=== PATIENT | male | born 1960 | race Caucasian/White ===

== ENCOUNTER 2019-05-11 05:59 | Observation (INO) | payer OTHER, SELFPAY ==
[2019-05-11] VITALS (9 sets, daily range): BP systolic 115–139; BP diastolic 68–95; PULSE 54–88; RESP 9–19; TEMP 36.3–36.6; O2SAT 93–99; BMI 43.5
--- NOTE | 2019-05-11 06:17 | ED_ITS ---
HPI - Skin/Abscess/Foreign Bdy General Chief complaint: Skin/Abscess/Foreign Body Stated complaint: 'foreign object in me' Time Seen by Provider: 05/11/19 06:00 Source: patient Mode of arrival: Ambulatory Limitations: no limitations History of Present Illness HPI narrative: 58-year-old male nonsmoker with history of hypertension and hyperlipidemia presents with a chief complaint of a rectal foreign body. About 12 hours ago he inserted a plastic shampoo bottle in his rectum and has been unable to get it out. He denies any abdominal pain but states that it is hard for him to sit down because he has fullness. He has been passing gas but even despite pushing has been unable to get it out. He has never done this before. He denies any nausea or vomiting. He last ate about 5 or 530 this morning. MD complaint: other Onset (ago): hour(s) Tetanus up to date: yes Severity: moderate Quality: aching Pain Consistency: constant Relieving factors: none Exacerbating factors: none Context: none Associated symptoms: denies other symptoms Treatments prior to arrival: none Related Data Allergies Allergy/AdvReac Type Severity Reaction Status Date / Time acetaminophen [From Roxicet] AdvReac Verified 05/11/19 06:26 lisinopril AdvReac Verified 05/11/19 06:26 oxycodone [From Roxicet] AdvReac Verified 05/11/19 06:26 simvastatin AdvReac Verified 05/11/19 06:26 Review of Systems Constitutional Constitutional: Denies chills, Denies fatigue, Denies fever(s), Denies frequent falls, Denies lethargy and Denies weakness Eyes Eyes: Denies change in vision, Denies eye discharge, Denies irritation and Denies loss of vision ENT Ears, Nose, Mouth, and Throat: Denies change in voice, Denies dizziness, Denies neck pain, Denies sore throat and Denies throat swelling Cardiovascular Cardiovascular: Denies chest pain, Denies irregular heart rhythm, Denies lightheadedness, Denies palpitations, Denies dyspnea, Denies dyspnea on exertion and Denies orthopnea Respiratory Respiratory: Denies cough, Denies dyspnea, Denies dyspnea on exertion and Denies wheezing Gastrointestinal Gastrointestinal: Denies abdominal pain, Denies change in bowel habits, Denies diarrhea, Denies nausea and Denies vomiting Comments: Rectal pain Genitourinary Genitourinary: Denies hematuria, Denies flank pain, Denies urinary incontinence and Denies urinary urgency Musculoskeletal Musculoskeletal: Denies back pain, Denies muscle weakness, Denies neck pain, Denies numbness and Denies tingling Integumentary/Breasts Skin/Breast: Denies pruritus, Denies erythema, Denies rash and Denies wounds Neurologic Neurologic: Denies behavioral changes, Denies confusion, Denies dizziness, Denies frequent falls, Denies loss of vision, Denies numbness, Denies tingling and Denies weakness Psychiatric Psychiatric: Denies anxiety, Denies behavioral changes, Denies confusion, Denies depression, Denies homicidal ideation and Denies suicidal ideation Endocrine Endocrine: Denies fatigue, Denies flushing and Denies palpitations Hematologic/Lymphatic Hematologic/Lymphatic: Denies easy bruising Allergic/Immunologic Allergic/Immunologic: Denies urticaria, Denies throat swelling and Denies wh eezing Patient History Social History Smoking Status: Never smoker Smoking Status: Never smoker alcohol intake frequency: 0-2 drinks per day Substance Use Type: does not use Exam Narrative Exam Narrative: GENERAL: [58] year old patient appears stated age. Well- nourished, well-developed patient, in mild distress. Anxious HEAD: Atraumatic. Normocephalic. EYES: Pupils equal round and reactive. Extraocular motions intact. No scleral icterus. No injection or drainage. ENT: Nose without bleeding, purulent drainage. Throat without erythema, tonsillar hypertrophy or exudate. Airway patent. NECK: Trachea midline. Non tender CARDIOVASCULAR: Regular rate and rhythm without murmurs, gallops, or rubs. RESPIRATORY: Clear to auscultation. Breath sounds equal bilaterally. No wheezes, rales, or rhonchi. GASTROINTESTINAL: Abdomen soft, non-tender, nondistended. RECTAL: No FB noted EXTREMITIES: No edema or joint tenderness. BACK: Nontender without deformity or crepitance. No flank tenderness. NEURO: AOx3. SKIN: No rash or erythema of visible areas Initial Vital Signs Initial Vital Signs: Vital Signs Temperature 98 F 05/11/19 06:12 Pulse Rate 88 05/11/19 06:12 Respiratory Rate 19 05/11/19 06:12 Blood Pressure 139/68 05/11/19 06:12 Pulse Oximetry 99 05/11/19 06:12 Course Course Course Narrative: Dr. Martin to see patient in ED will send to floor and take to OR later today Orders Ordered: ED Orders 05/11/19 06:28 XR abdomen min 2V Stat 05/11/19 06:55 Basic Metabolic Panel Stat Complete Blood Count AUTO DIFF Stat Prothrombin Time INR Stat Type and Screen Stat Vital Signs Vital signs: Vital Signs - 8 hr 05/11/19 06:12 Temperature 98 F Pulse Rate 88 Respiratory Rate 19 Blood Pressure 139/68 Pulse Oximetry 99 MDM - Skin/Abscess/Foreign Bdy Lab Data Result diagrams: 05/11/19 06:55 05/11/19 06:55 Labs: Lab Results 05/11/19 05/11/19 05/11/19 Range/Units 06:55 06:55 06:55 WBC 9.5 (4.5-11.0) X10^3/uL RBC 4.71 (4.5-5.9) X10^6/uL Hgb 15.1 (13.5-17.5) g/dL Hct 44.4 (41-53) % MCV 94.3 (80-100) fL MCH 32.0 (26-34) PG MCHC 34.0 (30-36) % RDW 13.7 (11.6-14.8) % Plt Count 113 L (150-400) X10^3/uL Neut % (Auto) 81.3 H (50-75) % Lymph % (Auto) 10.6 L (25-40) % [place] % (Auto) 6.2 (3-14) % Eos % (Auto) 1.7 L (2-4) % Baso % (Auto) 0.2 (0-2) % Neut # (Auto) 7700 H (0354-2999) /uL Lymph # (Auto) 1000 L (0627-8397) /uL [place] # (Auto) 600 (0-900) /uL Eos # (Auto) 200 (0-450) /uL Baso # (Auto) 0 (0-100) /uL PT 12.7 (10.1-12.7) SECONDS INR 1.1 (0.9-1.3) Sodium 140 (137-145) mmol/L Potassium 4.3 (3.4-5.1) mmol/L Chloride 107 (98-107) mmol/L Carbon Dioxide 24 (22-32) mmol/L BUN 20 (9-20) mg/dL Creatinine 0.80 (0.66-1.25) mg/dL Estimated GFR > 60.0 (>60) mL/min BUN/Creatinine Ratio 25.0 H (6-22) Glucose 251 H (70-100) mg/dL Calcium 9.2 (8.4-10.2) mg/dL Imaging Data Abdominal x-ray: My Impression: rectal FB with internal airfluid level Discharge Plan Departure Patient Disposition: Admitted as Observation Clinical Impression: Foreign body anus/rectum Qualifiers: Encounter type: initial encounter Qualified Code(s): T18.5XXA - Foreign body in anus and rectum, initial encounter Admit Date/Time: 05/11/19 07:31 Admit Provider: Graciela Martin
--- NOTE | 2019-05-11 06:24 | PC.NURSE ---
patient reports he placed a Vaseline lubricated shampoo bottle in his anus. Patient motioned with his hand showing approximate size of shampoo bottle at 12 inches. He reports he was able to feel it initially with his fingers and drove self into ED. He states he could feel the pressure on the shampoo bottle close to his anus when sitting in the car. Provider attempted a digital extraction however provider not able to feel the shampoo bottle.
--- NOTE | 2019-05-11 06:28 | DI.RAD.S_ITS ---
PROCEDURE: XR ABDOMEN MIN 2V INDICATIONS: foreign body TECHNIQUE: 2 views of the abdomen were acquired. COMPARISON: None. FINDINGS: Surgical changes and devices: None. Bowel: No pneumoperitoneum. The bowel gas pattern is normal. Probable surgical suture is projected over the epigastrium. No unexpected radiopaque foreign body visualized. Soft tissues: No masses; visualized solid organ contours appear normal in size. No suspicious abdominal calcifications. Bones: No suspicious bony abnormalities. IMPRESSION: No definite unexpected radiopaque foreign body is visualized in Dictated by: Samantha Carlisle M.D. on 05/11/2019 at 7:57 Approved by: Samantha Carlisle M.D. on 05/11/2019 at 7:59
[2019-05-11 07:06] LABS: Add Manual Diff / Slide Review NO; Basophils Absolute Auto 0 /uL (0-100); Basophils Percent Auto 0.2 % (0-2); Eosinophils Absolute Auto 200 /uL (0-450); Eosinophils Percent Auto 1.7 % (2-4); Hematocrit 44.4 % (41-53); Hemoglobin 15.1 g/dL (13.5-17.5); Lymphocytes Absolute Auto 1000 /uL (1100-4500); Lymphocytes Percent Auto 10.6 % (25-40); Mean Corpuscular Volume 94.3 fL (80-100); Monocytes Absolute Auto 600 /uL (0-900); Monocytes Percent Auto 6.2 % (3-14); Neutrophils Absolute Auto 7700 /uL (1500-7000); Neutrophils Percent Auto 81.3 % (50-75); Platelet Count 113 X10^3/uL (150-400); Red Blood Cell Count 4.71 X10^6/uL (4.5-5.9); Red Cell Distribution Width 13.7 % (11.6-14.8); White Blood Cell Count 9.5 X10^3/uL (4.5-11.0)
[2019-05-11 07:16] LABS: INR 1.1 (0.9-1.3); Prothrombin Time 12.7 SECONDS (10.1-12.7)
[2019-05-11 07:19] LABS: Blood Urea Nitrogen 20 mg/dL (9-20); Calcium 9.2 mg/dL (8.4-10.2); Carbon Dioxide 24 mmol/L (22-32); Chloride 107 mmol/L (98-107); Estimated Glomerular Filt Rate > 60.0 mL/min (>60); Glucose 251 mg/dL (70-100); HEMOLYSIS 21 (0-50); Potassium 4.3 mmol/L (3.4-5.1); Sodium 140 mmol/L (137-145)
--- NOTE | 2019-05-11 07:57 | PM.HP.1 ---
History of Present Illness History of Present Illness Date Patient Seen: 05/11/19 Time Patient Seen: 07:57 Chief complaint: 'foreign object in me' Narrative: This is a 58-year-old man with history of morbid obesity, hypertension, and hyperlipidemia who presented to the ER this morning complaining of a retained rectal foreign body. He says about 12 hours ago he placed a plastics shampoo bottle in his rectum with the closed cap going and 1st. He has not been able to get it out. He has passed some liquid stool and gas around it. He denies abdominal pain, nausea, vomiting but he does report a sense of rectal fullness and discomfort when sitting. He has a history of sleeve gastrectomy in surgery. Denies any other abdominal surgery. He said he had a colonoscopy about 2 years ago which was normal, other than 2 small polyps which were removed. He denies any melena, hematochezia, unexplained abdominal pain, or unexplained weight loss. Says he has never had a heart attack or stroke, but has had over 100 TIAs. He says he takes nitroglycerin for his TIAs. He says he has had sleeve gastrectomy in April of 2018, after which he has lost 100 lb. He says he has had sleep apnea surgery, but still uses a CPAP machine at home. Past medical history: Morbid obesity Hypertension hyperlipidemia obstructive sleep apnea DM2 TIA (patient said he has had over 100 TIAs) past surgical history: sleep apnea surgery sleeve gastrectomy in April of 2018, over 100 lb weight loss post surgery social: Smoking Status: Never smoker alcohol intake frequency: 0-2 drinks per day Substance Use Type: does not use Family history: No family history of colon or rectal disorders reported Allergies: Tylenol, lisinopril, oxycodone, simvastatin Home medications: Tylenol, aspirin, a total lack, omeprazole, nasal spray, albuterol, metformin b.i.d., metoprolol unknown dose b.i.d., atorvastatin, nitroglycerin sublingual as needed (last use 5 days ago) ROS: Constitutional: Denies chills, Denies fatigue, Denies fever(s), Denies frequent falls, Denies lethargy and Denies weakness Eyes: Denies change in vision, Denies eye discharge, Denies irritation and Denies loss of vision Ears, Nose, Mouth, and Throat: Denies change in voice, Denies dizziness, Denies neck pain, Denies sore throat and Denies throat swelling Cardiovascular: Denies chest pain, Denies irregular heart rhythm, Denies lightheadedness, Denies palpitations, Denies dyspnea, Denies dyspnea on exertion and Denies orthopnea Respiratory: Denies cough, Denies dyspnea, Denies dyspnea on exertion and Denies wheezing Gastrointestinal: Denies abdominal pain, Denies change in bowel habits, Denies diarrhea, Denies nausea and Denies vomiting Comments: Rectal pain Genitourinary: Denies hematuria, Denies flank pain, Denies urinary incontinence and Denies urinary urgency Musculoskeletal: Denies back pain, Denies muscle weakness, Denies neck pain, Denies numbness and Denies tingling Skin/Breast: Denies pruritus, Denies erythema, Denies rash and Denies wounds Neurologic: Denies behavioral changes, Denies confusion, Denies dizziness, Denies frequent falls, Denies loss of vision, Denies numbness, Denies tingling and Denies weakness Psychiatric: Denies anxiety, Denies behavioral changes, Denies confusion, Denies depression, Denies homicidal ideation and Denies suicidal ideation Endocrine: Denies fatigue, Denies flushing and Denies palpitations Hematologic/Lymphatic: Denies easy bruising Allergic/Immunologic: Denies urticaria, Denies throat swelling and Denies wheezing PE: GENERAL: Alert, comfortable. Morbidly obese. Appears older than stated age. Answers questions promptly and appropriately. Vital signs noted. HENT: Normocephalic, atraumatic. Hearing intact. Oral mucosa is pink and moist. EYES: Conjunctiva pink, sclera white, no periorbital swelling. CARDIOVASCULAR: Regular rate. No pedal edema. RESPIRATORY: Non-tachypneic, breathing comfortably on room air. GASTROINTESTINAL: Abdomen soft and non-distended; large in rounded, nontender on deep palpation, no masses felt the patient reports rectal discomfort when I press down on his abdomen Perianal: No external hemorrhoids, some excoriation of the perianal skin is present TRISTON: Moderate tenderness on exam, the foreign body is felt about 15 cm from the anoderm, and is caught on the sacrum, consistent with the bottom end of a shampoo bottle GENITALURINARY: No flank tenderness. MUSCULOSKELETAL: Equal tone and mass bilaterally. SKIN: Warm, dry, soft, appropriate color for ethnicity. No other lesions, rashes, or wounds. NEURO: Alert and Oriented X 3. No gross sensory deficits, or cognitive issues. PSYCH: Appropriate affect and mood. Patient History Family & Social History Safety & Behavioral: Feels Safe in Current Yes Environment Tobacco & Substance use: Smoking Status Never smoker alcohol intake frequency 0-2 drinks per day Substance Use Type does not use Meds Home Medications and Allergies Home Medications Medication Instructions Recorded Confirmed Type aspirin [Aspir-81] 81 mg PO DAILY 05/11/19 05/11/19 History atorvastatin 05/11/19 History metformin 1,000 mg PO BID 05/11/19 05/11/19 History metoprolol tartrate 05/11/19 History nitroglycerin 0.4 mg SUBLINGUAL Q5M 05/11/19 05/11/19 History Allergies Allergy/AdvReac Type Severity Reaction Status Date / Time acetaminophen [From Roxicet] AdvReac Verified 05/11/19 06:26 lisinopril AdvReac Verified 05/11/19 06:26 oxycodone [From Roxicet] AdvReac Verified 05/11/19 06:26 simvastatin AdvReac Verified 05/11/19 06:26 Exam Vital Signs (past 8 hours): - 05/11/19 06:12 Temperature 98 F Pulse Rate 88 Respiratory Rate 19 Blood Pressure 139/68 Pulse Oximetry 99 Objective Imaging Abdominal x-ray: My impression: There is an air-fluid level in the rectum consistent with plastic bottle have filled with shampoo, as described by the patient Labs Result Diagrams: 05/11/19 06:55 05/11/19 06:55 Labs: Laboratory Results - last 24 hr 05/11/19 05/11/19 05/11/19 06:55 06:55 06:55 WBC 9.5 RBC 4.71 Hgb 15.1 Hct 44.4 MCV 94.3 MCH 32.0 MCHC 34.0 RDW 13.7 Plt Count 113 L Neut % (Auto) 81.3 H Lymph % (Auto) 10.6 L [place] % (Auto) 6.2 Eos % (Auto) 1.7 L Baso % (Auto) 0.2 Neut # (Auto) 7700 H Lymph # (Auto) 1000 L [place] # (Auto) 600 Eos # (Auto) 200 Baso # (Auto) 0 PT INR Sodium 140 Potassium 4.3 Chloride 107 Carbon Dioxide 24 BUN 20 Creatinine 0.80 Estimated GFR > 60.0 BUN/Creatinine Ratio 25.0 H Glucose 251 H Calcium 9.2 Blood Type A Positive Antibody Screen Negative 05/11/19 06:55 WBC RBC Hgb Hct MCV MCH MCHC RDW Plt Count Neut % (Auto) Lymph % (Auto) [place] % (Auto) Eos % (Auto) Baso % (Auto) Neut # (Auto) Lymph # (Auto) [place] # (Auto) Eos # (Auto) Baso # (Auto) PT 12.7 INR 1.1 Sodium Potassium Chloride Carbon Dioxide BUN Creatinine Estimated GFR BUN/Creatinine Ratio Glucose Calcium Blood Type Antibody Screen Assessment & Plan Assessment and plan (1) Morbid obesity with BMI of 40.0-44.9, adult: Current visit: Yes Status: Acute (2) History of sleeve gastrectomy: Current visit: Yes Status: Acute (3) Hypertension: Current visit: Yes Status: Acute (4) Hyperlipidemia: Current visit: Yes Status: Acute (5) Foreign body anus/rectum: Qualifiers: Encounter type: initial encounter Qualified Code(s): T18.5XXA - Foreign body in anus and rectum, initial encounter Current visit: Yes Status: Acute (6) Personal history of colonic polyps: Current visit: Yes Status: Acute Assessment & Plan narrative: I had a long discussion with the patient regarding my exam findings and the potential outcomes of any intervention for this situation. Of note able to retrieve it on awake exam. I recommend that we do an exam under anesthesia with him in lithotomy position, during which I will hopefully be able to extract this foreign body. I explained to him that there is a high risk of perforation of the colon, which may necessitate a laparotomy, and may even result in a colostomy. The patient desires to proceed with this plan. He last ate solid food around 5:00 a.m. or 530 this morning, which means we cannot go to the OR until around 11:00 a.m. 45 minutes were spent face to face with the patient. More than 50% of the time was spent in counseling and co-ordination of care regarding discussion of medical history, HPI, discussion of risks and benefits of extraction under anesthesia, and possible laparotomy. Plan: NPO IV fluid Plan for anorectal exam under anesthesia, extraction of foreign body, possible sigmoidoscopy, possible laparotomy Time Spent With Patient Time with patient: Greater than 35 minutes Quality VTE Deep Vein Thrombosis/Pulmonary Embolism Present on Admission: No
--- NOTE | 2019-05-11 10:34 | PC.NURSE ---
Day shift: Pt off unit for procedure at 1035 approx.
[2019-05-11] MEDS: LACTATED RINGERS 1,000 ML 120 ML IV (10:45)
--- NOTE | 2019-05-11 11:28 | PM.OP.1 ---
Operative Date/Time/Diagnoses Date of procedure: 05/11/19 Time of procedure: 11:28 Pre-op diagnosis: Rectal foreign body Post-op diagnosis: same Procedure & Clinicians Procedure: Anorectal exam under anesthesia, extraction of foreign body from rectum Same procedure as scheduled: Yes Indications: This is a 58-year-old man who had a large improved bottle placed in his rectum last evening, and has not been able to remove it because of the shape of object, it was very high up in his colon, and he was not able to tolerate the exam. He came into the ER, where I was not able to remove it with him awake. So the decision was made to bring him to the operating room and put him under anesthesia in order to extract the foreign body. Surgeon: Graciela Martin Click Yes if Unassisted: Yes Anesthesia Type: General Operative Notes Findings: Large closed shampoo bottle in the rectosigmoid colon Specimen(s): none sent Estimated Blood Loss (mL): 5 Blood products transfused: none Procedure in detail: Patient was brought to the operating room he was placed supine on the operating table. Sequential compression devices were positioned on the patient and turned on. General anesthesia was induced the patient was intubated by Dr. Mcfadden. The patient was placed in lithotomy position. Surgical time-out was conducted. Rectal exam was then performed, and the foreign body was palpated at the very tip of my fingers. Using my other hand to push down on his abdomen I was able to gain a little bit of traction on the bottle, but it continued to slip. I attempted to place an Glenn retractor up into the rectum so that I could use an instrument to grasp the bottle, but I was not able to keep the retractor in place. I also attempted using a speculum to gain visual access to the object so that I could place a piercing forceps onto the object and retrieve it. Again I was then able to gain visual access to the object. Finally I placed my hand back into the rectum and advanced my entire hand up into the patient's rectum in order to fully grasp the object and extracted. Was then able to draw it smoothly out of the anal canal and out of the patient. There was a moderate amount of venous bleeding from some fissures caused by dilation of the rectum. Pressure was held on the bleeding areas of the anal verge and distal anal canal using a lap pad. I then used 2 large Gel foams rolled with Nupercaine and placed them into the anal canal for hemostasis. The patient tolerated the procedure well. Needle, sponge, and instrument counts were correct x2 at the end of the procedure. Patient was awakened from anesthesia and transferred to the post Anesthesia recovery unit in stable condition. Complications: none Post-operative Condition: stable Disposition: PACU Plan for aftercare: Patient will be discharged home once he has awakened from anesthesia and has someone to accompany him to take him home.
--- NOTE | 2019-05-11 11:30 | SUR.OPER ---
Lithotomy on padded OR bed, head on pillow, arms secured on padded arm boards at <90 degrees abduction. Legs secured in padded yellow fins stirrups.
[2019-05-11] MEDS: DIBUCAINE 1% OINT 28 GM 1 APPLIC TOP (11:38)
--- NOTE | 2019-05-11 12:19 | SUR.PHASEI ---
1205: Pt transferred to room 212 in stable conditions. Orders written for pt to DC from AC. Monitoring started by SARAHI Vang.
--- NOTE | 2019-05-11 14:03 | PC.NURSE ---
Pt discharged via wheelchair, escorted by [employer] son is driving him in private vehicle
== END 2019-05-11 14:06 | disposition home or self-care (01) ==
LOC: ED 07:19 → AC 07:33
PROVIDERS: Admitting Provider Surgery; Emergency Provider Emergency Medicine; PCP Nurse Practitioner Acute Care; Referring Provider Emergency Medicine; Visit Provider Surgery
PROC: (CPT 45990; principal; 2019-05-11 10:00)
DX: T18.5XXA Foreign body in anus and rectum, initial encounter (principal); E66.01 Morbid (severe) obesity due to excess calories; Z68.41 Body mass index [BMI] 40.0-44.9, adult; Z90.3 Acquired absence of stomach [part of]; I10 Essential (primary) hypertension; E78.5 Hyperlipidemia, unspecified; K21.9 Gastro-esophageal reflux disease without esophagitis; E11.9 Type 2 diabetes mellitus without complications; G47.33 Obstructive sleep apnea (adult) (pediatric); Z79.84 Long term (current) use of oral hypoglycemic drugs
CPT/HCPCS: 45915; 36415; 74019; 80048; 82962; 85025; 85610; 86850; 86900; 86901; 96360; 99219; 99284; G0378; J0330; J2405; J2704

== ENCOUNTER 2019-09-12 12:34 | Emergency (ER) | payer OTHER, SELFPAY ==
[2019-05-11 08:59] VITALS: BMI 43.5
[2019-09-12 12:56] VITALS: BMI 42.2
--- NOTE | 2019-09-12 12:56 | DI.CT.S_ITS ---
PROCEDURE: CT CERVICAL SPINE WO CON INDICATIONS: Neck tenderness post fall h/o C5 injury TECHNIQUE: Noncontrast 3 mm thick sections acquired from the skull base to the T4 level. Sagittal and coronal reformats were then constructed. For radiation dose reduction, the following was used: automated exposure control, adjustment of mA and/or kV according to patient size. COMPARISON: None. FINDINGS: Image quality: Excellent. Bones: No acute fractures or dislocations. No acute compression fractures of the vertebral bodies. Craniocervical junction is intact. C1-C2 relationship is preserved. Visualized superior ribs are intact. Age-indeterminate, but likely chronic inferior endplate changes at C5. There are moderate multilevel degenerative changes throughout the imaged spine. Straightening of cervical lordosis which may be due to patient positioning and/or concurrent muscle spasms. Soft tissues: Prevertebral soft tissues are normal in thickness. No paravertebral hematomas. No apical pneumothoraces. IMPRESSION: 1. Cervical spine without acute fracture or dislocation. Age-indeterminate but likely chronic inferior endplate changes at C5 which correlates with reported history of remote C5 injury. 2. Moderate multilevel cervical spondylosis. 3. Mild straightening of normal cervical lordosis likely related to positioning and/or concurrent muscle spasms. Dictated by: Jeremiah Gonzalez M.D. on 09/12/2019 at 13:28 Approved by: Jeremiah Gonzalez M.D. on 09/12/2019 at 13:38
--- NOTE | 2019-09-12 12:56 | DI.CT.S_ITS ---
PROCEDURE: CT HEAD/BRAIN WO CON INDICATIONS: FAll, head trauma TECHNIQUE: Noncontrast 4.5 mm thick angled axial sections acquired from the foramen magnum to the vertex, with coronal and sagittal reformats. For radiation dose reduction, the following was used: automated exposure control, adjustment of mA and/or kV according to patient size. COMPARISON: None. FINDINGS: Image quality: Excellent. CSF spaces: Basal cisterns are patent. No extra-axial fluid collections. The ventricles are symmetric in size and shape. Brain: No intracranial bleeds or masses. There is cerebral volume loss for age, with resultant ventricular and sulcal prominence. There are periventricular and deep white matter chronic small vessel ischemic changes. There is intracranial internal carotid artery atherosclerosis. Skull and face: Calvarium and visualized facial bones appear intact, without suspicious lesions. Small left frontal scalp contusion. Sinuses: Visualized sinuses and mastoids are clear. IMPRESSION: 1. CT head without acute intracranial abnormalities or acute calvarial fractures. 2. Age-related senescent changes and sequela of chronic small vessel ischemic disease. 3. Partially imaged small left frontal scalp contusion. Dictated by: Jeremiah Gonzalez M.D. on 09/12/2019 at 13:27 Approved by: Jeremiah Gonzalez M.D. on 09/12/2019 at 13:28
--- NOTE | 2019-09-12 12:56 | DI.CT.S_ITS ---
PROCEDURE: CT FACIAL BONES WO CON INDICATIONS: Fall, facial trauma TECHNIQUE: Noncontrast 2.5 mm thick axial images acquired from the mandible through the frontal sinuses, with coronal and sagittal reformatting. For radiation dose reduction, the following was used: automated exposure control, adjustment of mA and/or kV according to patient size. COMPARISON: None. FINDINGS: Image quality: Excellent. Bones and teeth: Orbital león are intact. Sinus león show no fracture or deformity. Small nondisplaced acute left nasal bone fracture. Osseous nasal septum appears intact. Visualized portions of the mandible demonstrate no fractures or subluxation. Zygomatic arches are intact. Pterygoid plates are intact. Visualized portions of the skull base and auditory canals are intact. Sinuses: There is mucosal thickening of the bilateral maxillary sinuses. Remainder of the paranasal sinuses appear clear. Mastoid air cells are well-aerated. Soft tissues: Minimal left frontal scalp contusion overlying the nasal bridge. No masses or fluid collections. No enlarged lymph nodes. No soft tissue lacerations or debris. Vascular: Visualized vascular structures appear normal in the absence of contrast. Bony vascular foramina and canals are intact. IMPRESSION: 1. Nondisplaced left nasal bone fracture. 2. Minimal left frontal scalp contusion without underlying calvarial fracture. 3. Bilateral maxillary sinus disease. Dictated by: Jeremiah Gonzalez M.D. on 09/12/2019 at 13:41 Approved by: Jeremiah Gonzalez M.D. on 09/12/2019 at 13:51
--- NOTE | 2019-09-12 12:56 | DI.RAD.S_ITS ---
PROCEDURE: XR KNEE LT 3V INDICATIONS: L knee pain and swelling post trauma TECHNIQUE: 3 views of the knee were acquired. COMPARISON: None. FINDINGS: Bones: No acute fractures or dislocations. Distal quadriceps enthesophyte at the superior pole of the patella. No suspicious bony lesions. Soft tissues: Mild anterior left knee soft tissue swelling. Very small joint effusion. No suspicious soft tissue calcifications. IMPRESSION: Mild anterior left knee soft tissue swelling and small joint effusion without underlying fracture or dislocation. If there is persistent clinical concern for occult fracture given adequate mechanism of injury, consider repeat imaging in 10-14 days. Dictated by: Jeremiah Gonzalez M.D. on 09/12/2019 at 13:52 Approved by: Jeremiah Gonzalez M.D. on 09/12/2019 at 13:54
--- NOTE | 2019-09-12 13:01 | ED.FALL ---
HPI - Fall <EBER Mcwilliams - Last Filed: 09/12/19 20:06> General Chief Complaint: Fall Stated Complaint: Trauma Injury To Face Time Seen by Provider: 09/12/19 12:37 History of Present Illness HPI Narrative: 58yo male history of hypertension, diabetes, and hyperlipidemia, presents to the emergency department after a fall last night. He states he fell down approximately 9 stairs and hit his face and his left knee. He was able to stand up afterwards but is complaining of neck pain. He has a history of C5 fracture and is worried that this is worse. Patient denies any loss of consciousness, fevers, chills, nausea, vomiting, diarrhea, or any other concerns. He does not take any blood thinners. Related Data Home Medications Medication Instructions Recorded Confirmed acetaminophen 1,000 mg PO BID 05/11/19 05/11/19 aspirin [Aspir-81] 81 mg PO DAILY 05/11/19 05/11/19 atorvastatin 05/11/19 etodolac 200 mg PO BID 05/11/19 05/11/19 metformin 1,000 mg PO BID 05/11/19 05/11/19 metoprolol tartrate 05/11/19 nitroglycerin 0.4 mg SUBLINGUAL Q5M 05/11/19 05/11/19 Allergies Allergy/AdvReac Type Severity Reaction Status Date / Time acetaminophen [From Roxicet] AdvReac Verified 05/11/19 06:26 lisinopril AdvReac Verified 05/11/19 06:26 oxycodone [From Roxicet] AdvReac Verified 05/11/19 06:26 simvastatin AdvReac Verified 05/11/19 06:26 Review of Systems <EBER Mcwilliams - Last Filed: 09/12/19 20:06> Review of Systems Narrative: REVIEW OF SYSTEMS: GENERAL: Denies fever or chills. HENT: Reports head and facial trauma, reports nasal pain see HPI. EYES: No vision changes. NECK: Reports neck pain, see HPI. CARDIOVASCULAR: No chest pain or syncope. RESPIRATORY: No shortness of breath or cough. GASTROINTESTINAL: No nausea, vomiting, diarrhea, or constipation. MUSCULOSKELETAL: No pain, weakness, or deformities. INTEGUMENTARY: No rash, lesions, or pruritus. NEURO: No numbness, tingling, memory loss, or confusion. PSYCH: No behavior or mood changes. Patient History <EBER Mcwilliams - Last Filed: 09/12/19 20:06> Medical History Hypertension (Acute) Social History household members: spouse Smoking Status: Never smoker alcohol intake: former Smoking Status: Never smoker alcohol intake frequency: holidays/special occasions only Substance Use Type: does not use Exam <EBER Mcwilliams - Last Filed: 09/12/19 20:06> Initial Vital Signs Initial Vital Signs: Vital Signs Temperature 97.6 F 09/12/19 13:04 Pulse Rate 60 09/12/19 13:04 Respiratory Rate 16 09/12/19 13:04 Blood Pressure 131/77 09/12/19 13:04 Pulse Oximetry 97 09/12/19 13:04 PHYSICAL EXAMINATION: GENERAL: Well groomed, alert, and cooperative. Obese. Answers questions promptly and appropriately. Vital signs noted. HENT: Normocephalic, abrasions noted to nasal bone and left upper orbital, small amount of swelling, tenderness to palpation of left orbital and nose. EYES: PERRLA, EOMIS, Conjunctiva pink, sclera white, no periorbital swelling. NECK: Lower cervical midline tenderness. CHEST: Normal to inspection and without deformities. CARDIOVASCULAR: S1 and S2 sounds normal. Regular rate and rhythm, no murmurs, clicks, or bruits. No pedal edema. RESPIRATORY: Normal respiratory rate, trachea midline, airway patent. No stridor, nasal flaring or accessory muscle use. Lungs are clear in all paulino without wheeze, rhonchi, or crackles. MUSCULOSKELETAL: Tenderness to palpation of left knee, moderate swelling. Decreased function of left knee due to pain. Large abrasion approximately 8 cm x 10 cm noted to left knee, small abrasion approximately 3 cm x 8 cm noted to right keita, no bony tenderness palpation to right keita. Normal gait and coordination. Equal tone and mass bilaterally. EXTREMITIES: CMS intact. Moves all extremities. SKIN: Warm, dry, soft, appropriate color for ethnicity. No lesions, rashes, or wounds. NEURO: Alert and Oriented X 3. GCS: 15. Good coordination. No ataxia, or sensory deficits, or cognitive issues. Cranial Nerves: II: Visual paulino grossly intact. III & IV & : EOMIs V: Able to open and close jaw. VII: Facial movements symetrical. Able to close eyelids tightly. VIII: Hearing grossly intact, adequate balance. X: Uvula pronation intact. XI: Patient is able to shrug shoulders. XII: Patient is able to stick out tongue and move it side to side. PSYCH: Appropriate affect and mood. <Shmuel Valencia DO - Last Filed: 09/13/19 07:00> Initial Vital Signs Initial Vital Signs: Vital Signs Temperature 97.6 F 09/12/19 13:04 Pulse Rate 60 09/12/19 13:04 Respiratory Rate 16 09/12/19 13:04 Blood Pressure 131/77 09/12/19 13:04 Pulse Oximetry 97 09/12/19 13:04 Course <EBER Mcwilliams - Last Filed: 09/12/19 20:06> Orders Ordered: Discontinued Medications Bacitracin (Bacitracin) 3 applic TOP NOW ONE Stop: 09/12/19 14:08 Last Admin: 09/12/19 14:35 Dose: 3 applic Documented by: JOHN Consultations Consultation #1: Patient staffed with Dr. Valencia, discussed test, test results, and plan of care. Vital Signs Vital signs: Vital Signs - 8 hr 09/12/19 13:04 09/12/19 14:36 Temperature 97.6 F Pulse Rate 60 64 Respiratory Rate 16 16 Blood Pressure 131/77 132/78 Pulse Oximetry 97 97 <Shmuel Valencia DO - Last Filed: 09/13/19 07:00> Orders Ordered: Discontinued Medications Bacitracin (Bacitracin) 3 applic TOP NOW ONE Stop: 09/12/19 14:08 Last Admin: 09/12/19 14:35 Dose: 3 applic Documented by: JOHN Vital Signs Vital signs: Vital Signs - 8 hr 09/12/19 13:04 09/12/19 14:36 Temperature 97.6 F Pulse Rate 60 64 Respiratory Rate 16 16 Blood Pressure 131/77 132/78 Pulse Oximetry 97 97 MDM - Fall <EBER Mcwilliams - Last Filed: 09/12/19 20:06> Medical Records Attestation: I reviewed the patient's medical records. Lab Data Attestation: I reviewed the patient's lab results. Imaging Data CT scan - head: Radiologist's Impression: [address] [address] [address] Scan Report Signed Patient: Minh Boudreaux [facility]#: [id number] : 1960Acct:[id number] Age/Sex: 58 / MDate of Service: 09/12/19 Loc: ED Accession Number: [id number] Procedure: CT head/brain wo con Ordering Provider: Mary John PROCEDURE: CT HEAD/BRAIN WO CON INDICATIONS: FAll, head trauma TECHNIQUE: Noncontrast 4.5 mm thick angled axial sections acquired from the foramen magnum to the vertex, with coronal and sagittal reformats. For radiation dose reduction, the following was used: automated exposure control, adjustment of mA and/or kV according to patient size. COMPARISON: None. FINDINGS: Image quality: Excellent. CSF spaces: Basal cisterns are patent. No extra-axial fluid collections. The ventricles are symmetric in size and shape. Brain: No intracranial bleeds or masses. There is cerebral volume loss for age, with resultant ventricular and sulcal prominence. There are periventricular and deep white matter chronic small vessel ischemic changes. There is intracranial internal carotid artery atherosclerosis. Skull and face: Calvarium and visualized facial bones appear intact, without suspicious lesions. Small left frontal scalp contusion. Sinuses: Visualized sinuses and mastoids are clear. IMPRESSION: 1. CT head without acute intracranial abnormalities or acute calvarial fractures. 2. Age-related senescent changes and sequela of chronic small vessel ischemic disease. 3. Partially imaged small left frontal scalp contusion. Dictated by: Jeremiah Gonzalez M.D. on 09/12/2019 at 13:27 Approved by: Jeremiah Gonzalez M.D. on 09/12/2019 at 13:28 CT NECK: Radiologist's Impression: [address] [address] [address] Scan Report Signed Patient: Minh Boudreaux [facility]#: [id number] : 1960Acct:[id number] Age/Sex: 58 / MDate of Service: 09/12/19 Loc: ED Accession Number: [id number] Procedure: CT cervical spine wo con Ordering Provider: Mary John PROCEDURE: CT CERVICAL SPINE WO CON INDICATIONS: Neck tenderness post fall h/o C5 injury TECHNIQUE: Noncontrast 3 mm thick sections acquired from the skull base to the T4 level. Sagittal and coronal reformats were then constructed. For radiation dose reduction, the following was used: automated exposure control, adjustment of mA and/or kV according to patient size. COMPARISON: None. FINDINGS: Image quality: Excellent. Bones: No acute fractures or dislocations. No acute compression fractures of the vertebral bodies. Craniocervical junction is intact. C1-C2 relationship is preserved. Visualized superior ribs are intact. Age-indeterminate, but likely chronic inferior endplate changes at C5. There are moderate multilevel degenerative changes throughout the imaged spine. Straightening of cervical lordosis which may be due to patient positioning and/or concurrent muscle spasms. Soft tissues: Prevertebral soft tissues are normal in thickness. No paravertebral hematomas. No apical pneumothoraces. IMPRESSION: 1. Cervical spine without acute fracture or dislocation. Age-indeterminate but likely chronic inferior endplate changes at C5 which correlates with reported history of remote C5 injury. 2. Moderate multilevel cervical spondylosis. 3. Mild straightening of normal cervical lordosis likely related to positioning and/or concurrent muscle spasms. Dictated by: Jeremiah Gonzalez M.D. on 09/12/2019 at 13:28 Approved by: Jeremiah Gonzalez M.D. on 09/12/2019 at 13:38 CT FACE: Radiologist's Impression: [place] [address] CT Scan Report Signed Patient: Minh Boudreaux [facility]#: [id number] : 1960Acct:[id number] Age/Sex: 58 / MDate of Service: 09/12/19 Loc: ED Accession Number: [id number] Procedure: CT facial bones wo con Ordering Provider: Mary John PROCEDURE: CT FACIAL BONES WO CON INDICATIONS: Fall, facial trauma TECHNIQUE: Noncontrast 2.5 mm thick axial images acquired from the mandible through the frontal sinuses, with coronal and sagittal reformatting. For radiation dose reduction, the following was used: automated exposure control, adjustment of mA and/or kV according to patient size. COMPARISON: None. FINDINGS: Image quality: Excellent. Bones and teeth: Orbital león are intact. Sinus león show no fracture or deformity. Small nondisplaced acute left nasal bone fracture. Osseous nasal septum appears intact. Visualized portions of the mandible demonstrate no fractures or subluxation. Zygomatic arches are intact. Pterygoid plates are intact. Visualized portions of the skull base and auditory canals are intact. Sinuses: There is mucosal thickening of the bilateral maxillary sinuses. Remainder of the paranasal sinuses appear clear. Mastoid air cells are well-aerated. Soft tissues: Minimal left frontal scalp contusion overlying the nasal bridge. No masses or fluid collections. No enlarged lymph nodes. No soft tissue lacerations or debris. Vascular: Visualized vascular structures appear normal in the absence of contrast. Bony vascular foramina and canals are intact. IMPRESSION: 1. Nondisplaced left nasal bone fracture. 2. Minimal left frontal scalp contusion without underlying calvarial fracture. 3. Bilateral maxillary sinus disease. Dictated by: Jeremiah Gonzalez M.D. on 09/12/2019 at 13:41 Approved by: Jeremiah Gonzalez M.D. on 09/12/2019 at 13:51 KNEE X-ray: Radiologist's Impression: [place] [address] XRay Report Signed Patient: Minh Boudreaux [facility]#: [id number] : 1960Acct:[id number] Age/Sex: 58 / MDate of Service: 09/12/19 Loc: ED Accession Number: [id number] Procedure: XR knee LT 3V Ordering Provider: Mary John PROCEDURE: XR KNEE LT 3V INDICATIONS: L knee pain and swelling post trauma TECHNIQUE: 3 views of the knee were acquired. COMPARISON: None. FINDINGS: Bones: No acute fractures or dislocations. Distal quadriceps enthesophyte at the superior pole of the patella. No suspicious bony lesions. Soft tissues: Mild anterior left knee soft tissue swelling. Very small joint effusion. No suspicious soft tissue calcifications. IMPRESSION: Mild anterior left knee soft tissue swelling and small joint effusion without underlying fracture or dislocation. If there is persistent clinical concern for occult fracture given adequate mechanism of injury, consider repeat imaging in 10-14 days. Dictated by: Jeremiah Gonzalez M.D. on 09/12/2019 at 13:52 Approved by: Jeremiah Gonzalez M.D. on 09/12/2019 at 13:54 [facility] Narrative Medical decision making narrative: 58yo male with history of C5 injury, presents to the emergency department after falling down multiple stairs, reports neck pain and face injury. CT of neck, head, and face were ordered due to trauma. Left knee x-ray due to swelling and reports of trauma to the leg. CT shows nondisplaced nasal fracture (referred to ENT) and on determinate age of C5 injury. I suspect C5 injuries most likely chronic from the past due to report of this injury however, this is not certain. Patient does have increased pain over the area, patient was given a calling the wear until follow-up. No fractures to knee, abrasions were clean and bacitracin applied. Less concern for intracranial etiology as patient is not taking any blood thinners, normal CT, normal neurological exam. Less concern for spinal compromise due to CT findings, bilateral upper and lower extremities with equal strength bilaterally. Strict return precautions given for new or worsening symptoms. Patient agreed to plan of care verbalized understanding. Discharge Plan Departure Patient Disposition: Home Clinical Impression: Fracture of nasal bone Qualifiers: Encounter type: initial encounter Fracture type: closed Qualified Code(s): S02.2XXA - Fracture of nasal bones, initial encounter for closed fracture C5 cervical fracture Qualifiers: Encounter type: subsequent encounter Fracture type: closed Fracture morphology: unspecified fracture morphology Fracture alignment: nondisplaced Fracture healing: with routine healing Qualified Code(s): S12.401D - Unspecified nondisplaced fracture of fifth cervical vertebra, subsequent encounter for fracture with routine healing Discharge Date/Time: 09/12/19 14:37 Instructions: How to Prevent Falls Activity Restrictions/Additional Instructions: Thank you for entrusting me with your care today. As discussed, your CT shows you have a nasal fracture, I referred you to ENT for follow-up. Additionally, there are bony changes to C5 which is most likely due to ear chronic injury, however, because you are having pain I recommend wearing a soft neck collar until you follow-up with an orthopedic. Your knee x-rays are negative for any fractures. Please put Neosporin or bacitracin on your wounds for the next few days, keep them clean and dry. Return emergency department for any new or worsening symptoms such as difficulty with gait, frequent falls, fevers, chills, redness, pus, dizziness, syncope, or any other concerns. Prescriptions: No Action metformin 500 mg Tablet 1,000 mg PO BID RF: 0 atorvastatin 10 mg Tablet RF: 0 metoprolol tartrate 25 mg Tablet RF: 0 aspirin [Aspir-81] 81 mg Tablet,Delayed Release (Dr/Ec) 81 mg PO DAILY RF: 0 nitroglycerin 0.4 mg Tablet, Sublingual 0.4 mg SUBLINGUAL Q5M RF: 0 etodolac 200 mg Capsule 200 mg PO BID RF: 0 acetaminophen 500 mg Tablet 1,000 mg PO BID RF: 0 Referrals: Blayne Briggs MD [Physician] - Lion Rodriguez MD [Physician] - Jyoti Dickey [Primary Care Provider] - <Shmuel Valencia DO - Last Filed: 09/13/19 07:00> Cosign ED Attending Cosignature Attestation: I was immediately available in the department for consultation. This documentation has been reviewed and I agree with assessment and plan. Supervised by Shmuel Valencia DO
[2019-09-12 13:04] VITALS: BP 131/77; PULSE 60; RESP 16; TEMP 36.4; O2SAT 97
[2019-09-12] MEDS: BACITRACIN OINT 0.9 GM PCKT 3 APPLIC TOP (14:35)
[2019-09-12 14:36] VITALS: BP 132/78; PULSE 64; RESP 16; O2SAT 97
== END 2019-09-12 14:37 | disposition home or self-care (01) ==
PROVIDERS: Emergency Provider Nurse Practitioner; PCP Nurse Practitioner Acute Care
DX: S02.2XXA Fracture of nasal bones, initial encounter for closed fracture (principal); S12.401A Unspecified nondisplaced fracture of fifth cervical vertebra, initial encounter for closed fracture; W10.9XXA Fall (on) (from) unspecified stairs and steps, initial encounter; I10 Essential (primary) hypertension; E11.9 Type 2 diabetes mellitus without complications; E78.5 Hyperlipidemia, unspecified; M54.2 Cervicalgia
CPT/HCPCS: 70450; 70486; 72125; 73562; 99284

== ENCOUNTER → 2022-02-10 13:37 | Outpatient (CLI) | payer OTHER, MEDICAID, SELFPAY ==
[2019-05-11 08:59] VITALS: BMI 43.5
--- NOTE | 2022-02-10 13:38 | DI.RAD.S_ITS ---
PROCEDURE: XR KNEE LT 3V INDICATIONS: Left knee pain TECHNIQUE: 3 views of the knee were acquired. COMPARISON: [facility], , XR KNEE LT 3V, 09/12/2019, 12:56. FINDINGS: Bones: No fractures or dislocations. No patellar subluxation. No suspicious bony lesions. Soft tissues: No joint effusion. No suspicious soft tissue calcifications. IMPRESSION: No acute left knee fracture or dislocation. No significant joint effusion. Dictated by: Justo Ortiz M.D. on 02/10/2022 at 14:11 Approved by: Justo Ortiz M.D. on 02/10/2022 at 14:13
== END ==
PROVIDERS: PCP Nurse Practitioner Acute Care; Referring Provider Physician Assistant Medical; Visit Provider Physician Assistant Medical
DX: M25.562 Pain in left knee (principal)
CPT/HCPCS: 73562

== ENCOUNTER → 2022-09-11 09:51 | Outpatient (CLI) | payer OTHER, SELFPAY ==
[2019-05-11 08:59] VITALS: BMI 43.5
--- NOTE | 2022-09-21 11:46 | DI.NM.S_ITS ---
DATE OF SERVICE: PROCEDURE: Exercise/pharmacological perfusion study. INDICATIONS: Chest pain. RADIOPHARMACEUTICAL: 27.4 millicurie technetium-99m Myoview IV was injected at stress and 25.8 millicurie technetium-99m Myoview IV was injected at rest. CARDIAC STRESS: The patient underwent initially exercise stress test protocol. He walked on Vinicius protocol only for 2 minutes and 18 seconds. He had leg pain, hence it was discontinued. Achieved maximum heart rate of 129, which was 80% of target heart rate. 4.6 METS of workload. JUDY positive 66%. Baseline blood pressure 130/76 and peak blood pressure 144/70 mmHg. No chest pain or anginal symptoms. Baseline rhythm sinus with some flattening of ST segments in diffuse leads with repolarization changes. During stress, no convincing ischemic changes. Some nonspecific ST-T changes. No significant arrhythmias. Test was converted to pharmacological stress test. Patient received IV Lexiscan as per protocol. He remained hemodynamically stable. He had transient headache and shortness of breath. No chest pain. No ischemic EKG changes or significant arrhythmias. RAW DATA: There is increased subdiaphragmatic activity. Soft tissue shadow around the heart. The patient's weight is 330 pounds. Resting LV ejection fraction 58% and stress LV ejection fraction 74%. I do not see any significant wall motion abnormalities. Resting end-diastolic volume 139 mL. TID ratio 0.77, which is within normal limits. Lung/heart ratio 0.62, which is abnormal. MYOCARDIAL PERFUSION SCAN: Please note that this patient does not have any stress prone images. Stress supine and resting supine images were compared to each other. Resting supine images revealed mild to moderate decrease of basal inferior wall extending into the basal inferolateral wall, inferoapex, as well as distal inferior septum. However, stress supine images revealed mostly normal myocardial perfusion. I do not see any reversible ischemia. CONCLUSION: I will call likely a normal myocardial perfusion study as stress supine images did not reveal any significant perfusion defect. The patient is morbidly obese. Weight is 330 pounds. Overall stress left ventricular ejection fraction better than resting left ventricular ejection fraction. Resting left ventricular ejection fraction 58% and stress 74%. No transient ischemic dilatation. Poor exercise tolerance. No convincing ischemic changes. Lung/heart ratio 0.62, which is abnormal, suggestive of elevated left ventricular filling pressure. Please consider 2D echo to make sure there is no diastolic dysfunction or valvular pathology. As far as perfusion scan is concerned, this is a low-risk myocardial perfusion scan. Correlate clinically. Minh Boudreaux - MICHAEL/eliezer/[place] doc#: [id number]/job#: [id number] dd: 09/12/2022 16:42:00 dt: 09/12/2022 23:44:00 DICTATING MD/COPIES TO: Romel Conteh MD COPIES MNE: NADIA;
== END ==
PROVIDERS: PCP Nurse Practitioner Acute Care; Referring Provider Nurse Practitioner; Visit Provider Nurse Practitioner
DX: R07.9 Chest pain, unspecified (principal); I25.10 Atherosclerotic heart disease of native coronary artery without angina pectoris
CPT/HCPCS: 78452; 93017; A9502; J2785

== ENCOUNTER 2022-10-14 19:01 | Emergency (ER) | payer OTHER, SELFPAY ==
[2019-05-11 08:59] VITALS: BMI 43.5
[2022-10-14] VITALS (25 sets, daily range): BP systolic 97–139; BP diastolic 56–84; PULSE 66–83; RESP 12–31; TEMP 36.8; O2SAT 92–100; BMI 42.8
--- NOTE | 2022-10-14 19:13 | DI.RAD.S_ITS ---
PROCEDURE: XR CHEST 1V INDICATIONS: weakness, near syncope TECHNIQUE: One view of the chest was acquired. COMPARISON: None. FINDINGS: Surgical changes and devices: None. Lungs and pleura: Lungs are clear. No pleural effusions or pneumothorax. Mediastinum: Mediastinal contours appear normal. Heart size is normal. Bones and chest wall: No suspicious bony lesions. Overlying soft tissues appear unremarkable. IMPRESSION: No acute cardiopulmonary process. Dictated by: Misbah Grant M.D. on 10/14/2022 at 19:46 Approved by: Misbah Grant M.D. on 10/14/2022 at 19:47
--- NOTE | 2022-10-14 19:15 | ED.GENADULT ---
HPI - General Adult General Chief complaint: Syncope Stated complaint: dizzy/almost passed out Time Seen by Provider: 10/14/22 19:12 History of Present Illness HPI narrative: 61M nonsmoker with hyperlipidemia, NIDDM, HTN presents with a near syncopal episode today. He states he had been seated for at least 30 minutes talking to a great nephew giving some advice about life and upon standing he got lightheaded and weak and family had to help him to ground. He did not lose consciousness and suffered no injury. His symptoms resolved prior to his arrival. He denies chest pain or palpitations. He denies any shortness of breath. He denies nausea or vomiting but does state that he has been having diarrhea off and on for many years. He denies any change in medication but does state that he went on a new diet 5 or 6 days ago and has lost about 10 lb. He states that he has been having trouble with dizziness upon standing for 6-7 years and has had multiple workups without any significant or meaningful outcomes arrives a bit later and states he had a syncopal episode at the dinner table earlier tonight that didn't have obvious provocation Related Data Home Medications Medication Instructions Recorded Confirmed acetaminophen 500 mg tablet 1,000 mg PO BID 05/11/19 02/10/22 aspirin 81 mg tablet,delayed 81 mg PO DAILY 05/11/19 10/14/22 release (Aspir-) atorvastatin 10 mg tablet 10 mg PO DAILY 05/11/19 10/14/22 etodolac 200 mg capsule 200 mg PO BID 05/11/19 02/10/22 metformin 500 mg tablet 1,000 mg PO BID 05/11/19 10/14/22 metoprolol tartrate 25 mg tablet 25 mg PO BID 05/11/19 10/14/22 nitroglycerin 0.4 mg sublingual 0.4 mg sublingual Q5M 05/11/19 02/10/22 tablet Allergies Allergy/AdvReac Type Severity Reaction Status Date / Time acetaminophen [From Roxicet] AdvReac Verified 10/14/22 19:24 lisinopril AdvReac Verified 10/14/22 19:24 oxycodone [From Roxicet] AdvReac Verified 10/14/22 19:24 simvastatin AdvReac Verified 10/14/22 19:24 Review of Systems Review of Systems Narrative: GENERAL: Denies chills, fatigue, malaise, fever, sweats. HEENT: Denies sinus pain, ear pain, sore throat, difficulty swallowing, dizziness. RESPIRATORY: Denies dyspnea, cough, wheezing, hemoptysis, sputum. CARDIOVASCULAR: see HPI GASTROINTESTINAL: Denies nausea, vomiting, abdominal pain, diarrhea, constipation, melena. : Denies dysuria, frequency, incontinence, hematuria, urinary retention. MUSCULOSKELETAL: denies weakness, joint pain, or bony pain SKIN: Denies rash, skin lesions, or other NEUROLOGIC: see HPI PSYCHIATRIC: No concerning psychosocial issues. 12 point review of systems is negative except for those stated above Patient History Medical History (Updated 10/15/22 @ 00:39 by Shmuel Valencia DO) Hypertension Social History household members: spouse Smoking Status: Never smoker alcohol intake: former Smoking Status: Never smoker alcohol intake frequency: holidays/special occasions only Substance Use Type: does not use Exam Narrative Exam Narrative: GENERAL: [61] year old patient appears stated age. Well-developed patient, in mild distress. HEAD: Atraumatic. Normocephalic. EYES: Pupils equal round and reactive. Extraocular motions intact. No scleral icterus. No injection or drainage. ENT: Nose without bleeding, purulent drainage. Throat without erythema, tonsillar hypertrophy or exudate. Airway patent. NECK: Trachea midline. Non tender CARDIOVASCULAR: Regular rate and rhythm without murmurs, gallops, or rubs. RESPIRATORY: Clear to auscultation. Breath sounds equal bilaterally. No wheezes, rales, or rhonchi. GASTROINTESTINAL: Abdomen soft, non-tender, nondistended. EXTREMITIES: No edema or joint tenderness. BACK: Nontender without deformity or crepitance. No flank tenderness. NEURO: AOx3. SKIN: No rash or erythema of visible areas Initial Vital Signs Initial Vital Signs: Vital Signs Temperature 98.2 F 10/14/22 19:19 Pulse Rate 82 10/14/22 19:19 Respiratory Rate 17 10/14/22 19:19 Blood Pressure 100/59 L 10/14/22 19:19 Pulse Oximetry 96 10/14/22 19:19 Oxygen Delivery Method Room Air 10/14/22 19:19 Course Orders Ordered: Discontinued Medications Sodium Chloride (Normal Saline 0.9%) 1,000 mls @ 1,000 mls/hr IV BOLUS ONE Stop: 10/14/22 20:11 Last Infusion: 10/14/22 20:47 Dose: 0 mls/hr Documented By: Admin: 10/14/22 19:48 Dose: 1,000 mls/hr Documented By: KATINA Sodium Chloride (Normal Saline 0.9%) 500 mls @ 1,000 mls/hr IV BOLUS ONE Stop: 10/14/22 21:18 Last Infusion: 10/14/22 21:49 Dose: 0 mls/hr Documented By: Admin: 10/14/22 20:50 Dose: 1,000 mls/hr Documented By: ODILIA Sodium Chloride (Normal Saline 0.9%) 500 mls @ 1,000 mls/hr IV BOLUS ONE Stop: 10/14/22 22:34 Last Infusion: 10/14/22 22:55 Dose: 0 mls/hr Documented By: Admin: 10/14/22 22:15 Dose: 1,000 mls/hr Documented By: KATINA Sodium Chloride (Normal Saline 0.9%) 1,000 mls @ 1,000 mls/hr IV BOLUS ONE Stop: 10/15/22 00:15 Last Infusion: 10/15/22 00:24 Dose: 0 mls/hr Documented By: Admin: 10/14/22 23:20 Dose: 1,000 mls/hr Documented By: KATINA Vital Signs Vital signs: Vital Signs - 8 hr 10/14/22 19:19 10/14/22 19:34 10/14/22 21:45 Temperature 98.2 F Pulse Rate 82 81 Pulse Rate [Orthostatic Lying] 74 Pulse Rate [Orthostatic Sitting] 76 Pulse Rate [Orthostatic Standing] 79 Respiratory Rate 17 18 Blood Pressure 100/59 L 102/66 Blood Pressure [Orthostatic Lying] 113/70 Blood Pressure [Orthostatic Sitting] 120/84 Blood Pressure [Orthostatic Standing] 106/65 Pulse Oximetry 96 94 Oxygen Delivery Method Room Air Room Air 10/14/22 19:33 10/14/22 20:00 10/14/22 20:00 Temperature Pulse Rate 83 82 Pulse Rate [Orthostatic Lying] Pulse Rate [Orthostatic Sitting] Pulse Rate [Orthostatic Standing] Respiratory Rate 23 22 Blood Pressure 108/69 Blood Pressure [Orthostatic Lying] Blood Pressure [Orthostatic Sitting] Blood Pressure [Orthostatic Standing] Pulse Oximetry 93 93 Oxygen Delivery Method 10/14/22 20:30 10/14/22 20:30 10/14/22 21:00 Temperature Pulse Rate 76 73 Pulse Rate [Orthostatic Lying] Pulse Rate [Orthostatic Sitting] Pulse Rate [Orthostatic Standing] Respiratory Rate 16 26 H Blood Pressure 128/62 Blood Pressure [Orthostatic Lying] Blood Pressure [Orthostatic Sitting] Blood Pressure [Orthostatic Standing] Pulse Oximetry 94 97 Oxygen Delivery Method 10/14/22 21:01 10/14/22 21:01 10/14/22 21:30 Temperature Pulse Rate 74 Pulse Rate [Orthostatic Lying] Pulse Rate [Orthostatic Sitting] Pulse Rate [Orthostatic Standing] Respiratory Rate 20 Blood Pressure 117/57 L 134/69 Blood Pressure [Orthostatic Lying] Blood Pressure [Orthostatic Sitting] Blood Pressure [Orthostatic Standing] Pulse Oximetry 96 Oxygen Delivery Method 10/14/22 21:30 10/14/22 21:33 10/14/22 21:33 Temperature Pulse Rate 69 68 Pulse Rate [Orthostatic Lying] Pulse Rate [Orthostatic Sitting] Pulse Rate [Orthostatic Standing] Respiratory Rate 15 12 Blood Pressure 113/70 Blood Pressure [Orthostatic Lying] Blood Pressure [Orthostatic Sitting] Blood Pressure [Orthostatic Standing] Pulse Oximetry 97 97 Oxygen Delivery Method 10/14/22 21:38 10/14/22 21:38 10/14/22 21:40 Temperature Pulse Rate 75 76 Pulse Rate [Orthostatic Lying] Pulse Rate [Orthostatic Sitting] Pulse Rate [Orthostatic Standing] Respiratory Rate 31 H 25 H Blood Pressure 120/84 Blood Pressure [Orthostatic Lying] Blood Pressure [Orthostatic Sitting] Blood Pressure [Orthostatic Standing] Pulse Oximetry 95 92 Oxygen Delivery Method 10/14/22 21:40 10/14/22 22:09 10/14/22 22:12 Temperature Pulse Rate 75 66 Pulse Rate [Orthostatic Lying] Pulse Rate [Orthostatic Sitting] Pulse Rate [Orthostatic Standing] Respiratory Rate 20 15 Blood Pressure 106/65 106/65 Blood Pressure [Orthostatic Lying] Blood Pressure [Orthostatic Sitting] Blood Pressure [Orthostatic Standing] Pulse Oximetry 97 98 Oxygen Delivery Method 10/14/22 22:12 10/14/22 22:48 10/14/22 22:30 Temperature Pulse Rate Pulse Rate [Orthostatic Lying] 71 Pulse Rate [Orthostatic Sitting] 72 Pulse Rate [Orthostatic Standing] 70 Respiratory Rate Blood Pressure 102/56 L 108/57 L Blood Pressure [Orthostatic Lying] 112/60 Blood Pressure [Orthostatic Sitting] 103/65 Blood Pressure [Orthostatic Standing] 111/67 Pulse Oximetry Oxygen Delivery Method 10/14/22 22:30 10/14/22 22:41 10/14/22 22:41 Temperature Pulse Rate 68 68 Pulse Rate [Orthostatic Lying] Pulse Rate [Orthostatic Sitting] Pulse Rate [Orthostatic Standing] Respiratory Rate 23 16 Blood Pressure 112/60 Blood Pressure [Orthostatic Lying] Blood Pressure [Orthostatic Sitting] Blood Pressure [Orthostatic Standing] Pulse Oximetry 96 98 Oxygen Delivery Method 10/14/22 22:43 10/14/22 22:43 10/14/22 22:45 Temperature Pulse Rate 71 73 Pulse Rate [Orthostatic Lying] Pulse Rate [Orthostatic Sitting] Pulse Rate [Orthostatic Standing] Respiratory Rate 28 H 21 Blood Pressure 103/65 Blood Pressure [Orthostatic Lying] Blood Pressure [Orthostatic Sitting] Blood Pressure [Orthostatic Standing] Pulse Oximetry 99 96 Oxygen Delivery Method 10/14/22 22:45 10/14/22 22:46 10/14/22 22:46 Temperature Pulse Rate 72 Pulse Rate [Orthostatic Lying] Pulse Rate [Orthostatic Sitting] Pulse Rate [Orthostatic Standing] Respiratory Rate 18 Blood Pressure 97/58 L 98/56 L Blood Pressure [Orthostatic Lying] Blood Pressure [Orthostatic Sitting] Blood Pressure [Orthostatic Standing] Pulse Oximetry 100 Oxygen Delivery Method 10/14/22 22:51 10/14/22 22:51 10/14/22 22:52 Temperature Pulse Rate 73 68 Pulse Rate [Orthostatic Lying] Pulse Rate [Orthostatic Sitting] Pulse Rate [Orthostatic Standing] Respiratory Rate 30 H 21 Blood Pressure 111/61 Blood Pressure [Orthostatic Lying] Blood Pressure [Orthostatic Sitting] Blood Pressure [Orthostatic Standing] Pulse Oximetry 100 Oxygen Delivery Method 10/14/22 22:52 Temperature Pulse Rate Pulse Rate [Orthostatic Lying] Pulse Rate [Orthostatic Sitting] Pulse Rate [Orthostatic Standing] Respiratory Rate Blood Pressure 139/62 Blood Pressure [Orthostatic Lying] Blood Pressure [Orthostatic Sitting] Blood Pressure [Orthostatic Standing] Pulse Oximetry Oxygen Delivery Method Medical Decision Making Lab Data 10/14/22 19:26 10/14/22 21:33 Labs: Lab Results 10/14/22 10/14/22 10/14/22 Range/Units 19:26 19:26 21:33 WBC 10.4 (4.5-11.0) X10^3/uL RBC 4.75 (4.5-5.9) X10^6/uL Hgb 15.1 (13.5-17.5) g/dL Hct 43.3 (41-53) % MCV 91.1 (80-100) fL MCH 31.8 (26-34) PG MCHC 34.9 (30-36) % RDW 13.8 (11.6-14.8) % Plt Count 177 (150-400) X10^3/uL Neut % (Auto) 76.8 H (50-75) % Lymph % (Auto) 13.6 L (25-40) % Bennett % (Auto) 7.3 (3-14) % Eos % (Auto) 1.8 L (2-4) % Baso % (Auto) 0.5 (0-2) % Neut # (Auto) 8000 H (4683-8973) /uL Lymph # (Auto) 1400 (0407-3987) /uL Bennett # (Auto) 800 (0-900) /uL Eos # (Auto) 200 (0-450) /uL Baso # (Auto) 100 (0-100) /uL Sodium 135 L 136 L (137-145) mmol/L Potassium 4.2 4.0 (3.4-5.1) mmol/L Chloride 104 105 (98-107) mmol/L Carbon Dioxide 20 L 26 (22-32) mmol/L BUN 18 18 (9-20) mg/dL Creatinine 1.46 H 1.20 (0.66-1.25) mg/dL Estimated GFR 55 L > 60 (>60) mL/min BUN/Creatinine Ratio 12.3 15.0 (6-22) Glucose 235 H 186 H (70-100) mg/dL Calcium 8.9 8.1 L (8.4-10.2) mg/dL Magnesium 1.5 L (1.6-2.3) mg/dL Total Bilirubin 0.9 (0.2-1.3) mg/dL AST 35 (17-59) IU/L ALT 32 (<50) IU/L Alkaline Phosphatase 84 (38-126) U/L Total Creatine Kinase 179 H (55-170) U/L Troponin I < 0.012 (0.01-0.034) ng/mL NT-Pro-B Natriuret Pep 219 H (<125) pg/mL Total Protein 7.2 (6.3-8.2) g/dL Albumin 4.2 (3.5-5.0) g/dL Globulin 3.0 (1.7-4.1) g/dL Albumin/Globulin Ratio 1.4 (1.0-2.8) Ur Bilirubin Confirm (Negative) Urine RBC (0-5/HPF) Urine WBC (0-5/HPF) Ur Squamous Epith Cells (0-5/HPF) Amorphous Sediment Urine Bacteria (None) Hyaline Casts (None) Ur Culture Indicated? 10/15/22 10/15/22 Range/Units 00:40 00:40 WBC (4.5-11.0) X10^3/uL RBC (4.5-5.9) X10^6/uL Hgb (13.5-17.5) g/dL Hct (41-53) % MCV (80-100) fL MCH (26-34) PG MCHC (30-36) % RDW (11.6-14.8) % Plt Count (150-400) X10^3/uL Neut % (Auto) (50-75) % Lymph % (Auto) (25-40) % Bennett % (Auto) (3-14) % Eos % (Auto) (2-4) % Baso % (Auto) (0-2) % Neut # (Auto) (2557-8466) /uL Lymph # (Auto) (7915-3407) /uL Bennett # (Auto) (0-900) /uL Eos # (Auto) (0-450) /uL Baso # (Auto) (0-100) /uL Sodium (137-145) mmol/L Potassium (3.4-5.1) mmol/L Chloride (98-107) mmol/L Carbon Dioxide (22-32) mmol/L BUN (9-20) mg/dL Creatinine (0.66-1.25) mg/dL Estimated GFR (>60) mL/min BUN/Creatinine Ratio (6-22) Glucose (70-100) mg/dL Calcium (8.4-10.2) mg/dL Magnesium (1.6-2.3) mg/dL Total Bilirubin (0.2-1.3) mg/dL AST (17-59) IU/L ALT (<50) IU/L Alkaline Phosphatase (38-126) U/L Total Creatine Kinase (55-170) U/L Troponin I (0.01-0.034) ng/mL NT-Pro-B Natriuret Pep (<125) pg/mL Total Protein (6.3-8.2) g/dL Albumin (3.5-5.0) g/dL Globulin (1.7-4.1) g/dL Albumin/Globulin Ratio (1.0-2.8) Ur Bilirubin Confirm Negative (Negative) Urine RBC None seen (0-5/HPF) Urine WBC None seen (0-5/HPF) Ur Squamous Epith Cells 0-1 /hpf (0-5/HPF) Amorphous Sediment 2+ Urine Bacteria None seen (None) Hyaline Casts 1-5/lpf (None) Ur Culture Indicated? Cult not indicated Point of Care Testing Glucose POC 149 Urine Dip Bedside Urine Glucose Negative Bedside Urine Bilirubin + 1 Bedside Urine Ketone - Negative Urine Specific Bradford 1.030 Bedside Urine Occult Blood - Negative Bedside Urine pH 5.5 Bedside Urine Protein + 30 Bedside Urine Urobilinogen - Negative Bedside Urine Nitrite - Negative Bedside Urine Leukocytes +/- 15 Esterase Point of care testing: Point of Care Testing Glucose POC 149 Urine Dip Bedside Urine Glucose Negative Bedside Urine Bilirubin + 1 Bedside Urine Ketone - Negative Urine Specific Bradford 1.030 Bedside Urine Occult Blood - Negative Bedside Urine pH 5.5 Bedside Urine Protein + 30 Bedside Urine Urobilinogen - Negative Bedside Urine Nitrite - Negative Bedside Urine Leukocytes +/- 15 Esterase MDM Narrative Medical decision making narrative: CC: 61M with lightheadedness upon standing Complicating co-morbidities: age, DM, HTN, hyperlipidemia, chronic history of same, chronic diarrhea, recent diet change Data collected from: Patient and his Medical records reviewed: Prior notes reviewed in our EMR Differential considered, but not limited to: dehydration vs. arrhythmia vs. cardiac ischemia vs. electrolyte abnormality vs. other Exam documented above, pertinent findings include: HRRR, lungs clear, mucous membranes moist, abdomen soft Lab Test results independently reviewed as above. Pertinent findings: Independently reviewed EKG as above Imaging studies independently reviewed: CXR NAP Consultations: Dr. Driscoll (hospitalist) happy to admit on his service Treatments:fluids Re-evaluations: no episodes in ED Discussion: Patient with at least 1 and more likely 2 or 3 unprovoked syncopal episodes over the course of the day. Well 1 episode, witnessed by EMS happened during a hyperventilating anxious episode to had no association with change in position, vomiting, pain or other obvious event. EKG x2 is unremarkable, imaging without acute findings, labs largely unremarkable, significance of lactate at 2.4 unclear, patient has no fever or chills, no elevated white count and no suspected infection. Pulmonary embolism thought unlikely as his dimer is below the age corrected cutoff. Patient requires hospitalization for monitoring for possible arrhythmia among other diagnoses Discharge Plan Departure Patient Disposition: Home Clinical Impression: Acute dehydration, Orthostasis Instructions: DI for Syncope in Adults (Fainting) Activity Restrictions/Additional Instructions: *You have been diagnosed with [ dehydration and near syncope. As we discussed your history and exam are reassuring. Your labs show evidence ] *What to do: *Please continue to take your regular medications as directed. *Please follow up with your primary care provider in 2-3 days, call for an appointment. Let them know you were seen in the Emergency Department and that we ask that you be seen in follow up. We will electronically transmit a record of today's note if your PCP is in our system *If you do not have a primary care provider please contact the [facility] Resource line at [phone]. They will ask some questions about your medical history and help get you set up with a doctor in the community. *Return to Emergency Department if you should have any new, worsening or concerning symptoms, such as [fever greater than 101 F, shaking chills, worsening pain, persistent vomiting or other bothersome symptoms] Prescriptions: No Action metformin 500 mg Tablet 1,000 mg PO BID atorvastatin 10 mg Tablet 10 mg PO DAILY Rx Instructions: unknown dose metoprolol tartrate 25 mg Tablet 25 mg PO BID Rx Instructions: unknown dose aspirin [Aspir-81] 81 mg Tablet,Delayed Release (Dr/Ec) 81 mg PO DAILY nitroglycerin 0.4 mg Tablet, Sublingual 0.4 mg SUBLINGUAL Q5M etodolac 200 mg Capsule 200 mg PO BID acetaminophen 500 mg Tablet 1,000 mg PO BID Referrals: Jyoti Dickey ARNP [Primary Care Provider] - Stand Alone Forms: Patient Portal/API
[2022-10-14 19:32] LABS: Add Manual Diff / Slide Review NO; Basophils Absolute Auto 100 /uL (0-100); Basophils Percent Auto 0.5 % (0-2); Eosinophils Absolute Auto 200 /uL (0-450); Eosinophils Percent Auto 1.8 % (2-4); Hematocrit 43.3 % (41-53); Hemoglobin 15.1 g/dL (13.5-17.5); Lymphocytes Absolute Auto 1400 /uL (1100-4500); Lymphocytes Percent Auto 13.6 % (25-40); Mean Corpuscular HGB Conc 34.9 % (30-36); Mean Corpuscular Hemoglobin 31.8 PG (26-34); Mean Corpuscular Volume 91.1 fL (80-100); Monocytes Absolute Auto 800 /uL (0-900); Monocytes Percent Auto 7.3 % (3-14); Neutrophils Absolute Auto 8000 /uL (1500-7000); Neutrophils Percent Auto 76.8 % (50-75); Platelet Count 177 X10^3/uL (150-400); Red Blood Cell Count 4.75 X10^6/uL (4.5-5.9); Red Cell Distribution Width 13.8 % (11.6-14.8); White Blood Cell Count 10.4 X10^3/uL (4.5-11.0)
[2022-10-14 19:41] LABS: Alanine Aminotransferase 32 IU/L (<50); Albumin 4.2 g/dL (3.5-5.0); Albumin Globulin Ratio 1.4 (1.0-2.8); Alkaline Phosphatase 84 U/L (38-126); Aspartate Aminotransferase 35 IU/L (17-59); BUN Creatinine Ratio 12.3 (6-22); Bilirubin Total 0.9 mg/dL (0.2-1.3); Blood Urea Nitrogen 18 mg/dL (9-20); Calcium 8.9 mg/dL (8.4-10.2); Carbon Dioxide 20 mmol/L (22-32); Chloride 104 mmol/L (98-107); Creatine Kinase 179 U/L (55-170); Estimated Glomerular Filt Rate 55 mL/min (>60); Glucose 235 mg/dL (70-100); HEMOLYSIS 24 (0-50); Magnesium 1.5 mg/dL (1.6-2.3); Potassium 4.2 mmol/L (3.4-5.1); Sodium 135 mmol/L (137-145); Total Protein 7.2 g/dL (6.3-8.2)
[2022-10-14] MEDS: SODIUM CHLORIDE 0.9% 1,000 ML 1000 ML IV ×2 (19:48→23:20)
[2022-10-14 19:52] LABS: NT-proBNP (BNP-Adult 18+) 219 pg/mL (<125); Troponin I < 0.012 ng/mL (0.01-0.034)
[2022-10-14] MEDS: SODIUM CHLORIDE 0.9% 500 ML 1000 ML IV ×2 (20:50→22:15)
[2022-10-14 22:04] LABS: Blood Urea Nitrogen 18 mg/dL (9-20); Calcium 8.1 mg/dL (8.4-10.2); Carbon Dioxide 26 mmol/L (22-32); Chloride 105 mmol/L (98-107); Estimated Glomerular Filt Rate > 60 mL/min (>60); Glucose 186 mg/dL (70-100); HEMOLYSIS 21 (0-50); Sodium 136 mmol/L (137-145)
--- NOTE | 2022-10-14 22:57 | PC.NURSE ---
Patient ambulated to the bathroom with a walker without assistance. Reports mild dizziness upon standing. No syncopal episodes while in ER.
[2022-10-15] VITALS: BP 122/69; PULSE 68; RESP 15; O2SAT 97
[2022-10-15 00:41] VITALS: PULSE 66; O2SAT 94
[2022-10-15 00:42] VITALS: BP 137/61; PULSE 67; RESP 15; O2SAT 97; O2SAT 99
[2022-10-15 00:58] LABS: Ictotest Urine Negative (Negative)
[2022-10-15 01:03] LABS: Amorphous Sediment Urine 2+; Bacteria Urine None Seen; Hyaline Casts Urine 1-5/LPF; RBC Urine None Seen (0-5/HPF); Squamous Epithelial Cell Urine 0-1 /HPF (0-5/HPF); WBC Urine None Seen (0-5/HPF)
[2022-10-15 01:04] LABS: Culture Indicated Urine Cult Not Indicated
== END 2022-10-15 01:05 | disposition home or self-care (01) ==
PROVIDERS: Emergency Provider Emergency Medicine; PCP Nurse Practitioner Acute Care
DX: E86.0 Dehydration (principal); R55 Syncope and collapse
CPT/HCPCS: 36415; 71045; 80048; 80053; 81003; 81015; 82550; 82962; 83735; 83880; 84484; 85025; 93005; 93010; 96360; 96361; 99284

== ENCOUNTER 2023-03-02 13:50 | Emergency (ER) | payer OTHER, MEDICAID, SELFPAY ==
[2019-05-11 08:59] VITALS: BMI 43.5
[2023-03-02 13:58] VITALS: BP 146/91; PULSE 78; RESP 18; TEMP 36.2; O2SAT 97; BMI 41.4
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
[2023-03-02 15:14] VITALS: BP 155/71; PULSE 60; RESP 20; TEMP 36.3
== END 2023-03-02 15:19 | disposition home or self-care (01) ==
PROVIDERS: Emergency Provider Student in an Organized Health Care Education/Training Program; PCP Nurse Practitioner Acute Care
DX: T25.221A Burn of second degree of right foot, initial encounter (principal)
CPT/HCPCS: 87070; 87075; 87205; 99281; 99282

== ENCOUNTER 2023-06-23 18:40 | Emergency (ER) | payer OTHER, SELFPAY ==
[2019-05-11 08:59] VITALS: BMI 43.5
[2023-06-23 18:58] VITALS: BP 176/89; PULSE 69; RESP 24; TEMP 36.3; O2SAT 96; BMI 43.4
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
--- NOTE | 2023-06-23 19:50 | DI.CT.S_ITS ---
PROCEDURE: CT HEAD/BRAIN WO CON INDICATIONS: fall, hit head on asa TECHNIQUE: Noncontrast 4.5 mm thick angled axial sections acquired from the foramen magnum to the vertex, with coronal and sagittal reformats. For radiation dose reduction, the following was used: automated exposure control, adjustment of mA and/or kV according to patient size. COMPARISON: [facility], CT, CT HEAD/BRAIN WO CON, 09/12/2019, 12:56. FINDINGS: Image quality: Diagnostic. CSF spaces: Basal cisterns are patent. No extra-axial fluid collections. Ventricles are normal in size and shape. Brain: No midline shift. No intracranial masses or hemorrhage. Yeung-white matter interface is normal. Skull and face: Calvarium and visualized facial bones are intact, without suspicious lesions. Sinuses: Right maxillary sinus retention cyst IMPRESSION: No acute intracranial pathology. Approved by: Jay Milton M.D. on 06/23/2023 at 19:51
--- NOTE | 2023-06-23 19:50 | DI.RAD.S_ITS ---
PROCEDURE: XR THORACIC SPINE 3V INDICATIONS: fall, hit back, back pain, no other symptoms TECHNIQUE: 3 views of the thoracic spine were acquired. COMPARISON: None. FINDINGS: Bones: No fractures or dislocations. No suspicious bony lesions. 12 pairs of ribs are noted, and appear intact where visualized. Degenerative disc space narrowing anterior osteophytes noted in the lower thoracic spine Soft tissues: No paravertebral stripe thickening. IMPRESSION: No acute bony abnormality. Approved by: Jay Milton M.D. on 06/23/2023 at 20:37
--- NOTE | 2023-06-23 19:52 | DI.CT.S_ITS ---
PROCEDURE: CT CERVICAL SPINE WO CON INDICATIONS: fall, hx c5 fracture TECHNIQUE: Noncontrast 3 mm thick sections acquired from the skull base to the T4 level. Sagittal and coronal reformats were then constructed. For radiation dose reduction, the following was used: automated exposure control, adjustment of mA and/or kV according to patient size. COMPARISON: [facility], CT, CT CERVICAL SPINE WO CON, 09/12/2019, 12:56. FINDINGS: Image quality: Excellent. Bones: There is straightening of the normal cervical lordosis. Disc space narrowing and anterior osteophytes noted in the mid to lower cervical spine. No evidence of acute fracture. Craniovertebral relationships are normal Soft tissues: Prevertebral soft tissues are normal in thickness. No paravertebral hematomas. No apical pneumothoraces. IMPRESSION: No displaced fracture or traumatic subluxation. Degenerative disc disease and arthropathy, stable Approved by: Jay Milton M.D. on 06/23/2023 at 19:57
[2023-06-23 22:24] VITALS: BP 150/84; PULSE 60; RESP 16; O2SAT 97
== END 2023-06-23 22:25 | disposition home or self-care (01) ==
PROVIDERS: Emergency Provider Emergency Medicine; PCP Nurse Practitioner Acute Care
DX: M54.6 Pain in thoracic spine (principal); R20.2 Paresthesia of skin; M25.78 Osteophyte, vertebrae; Z79.82 Long term (current) use of aspirin
CPT/HCPCS: 70450; 72072; 72125; 99281; 99284

== ENCOUNTER 2024-07-29 12:07 | Emergency (ER) | payer OTHER, SELFPAY ==
[2019-05-11 08:59] VITALS: BMI 43.5
[2024-07-29 12:19] VITALS: BP 104/59; PULSE 64; RESP 18; TEMP 36.6; O2SAT 97; BMI 42.8
--- NOTE | 2024-07-29 12:28 | DI.RAD.S_ITS ---
PROCEDURE: XR FOOT LT MIN 3V INDICATIONS: fall 2 days ago TECHNIQUE: 3 views of the foot were acquired. COMPARISON: None. FINDINGS: Bones: No definite acute fracture seen. Normal alignment. Dorsal midfoot degenerative changes. Small retrocalcaneal enthesophyte. No suspicious bony lesions. Soft tissues: No tibiotalar joint effusion. Achilles tendon appears normal. IMPRESSION: Left foot without definite acute fracture identified. No dislocation. Dorsal midfoot osteoarthritic changes. Small posterior calcaneal enthesophyte. If there is persistent clinical concern for occult fracture given adequate mechanism of injury, consider repeat imaging in 10-14 days. Immobilization as clinically indicated. Dictated by: Jeremiah Gonzalez M.D. on 07/29/2024 at 13:37 Approved by: Jeremiah Gonzalez M.D. on 07/29/2024 at 13:39
--- NOTE | 2024-07-29 12:28 | DI.RAD.S_ITS ---
PROCEDURE: XR KNEE LT 3V INDICATIONS: fall 2 days ago TECHNIQUE: 3 views of the knee were acquired. COMPARISON: , , XR KNEE LT 3V, 02/10/2022, 13:37. FINDINGS: Bones: No fractures or dislocations. No suspicious bony lesions. Tricompartmental osteoarthrosis. Soft tissues: No joint effusion. No suspicious soft tissue calcifications. IMPRESSION: Left knee without acute fracture or dislocation. Tricompartmental osteoarthrosis. If there is persistent clinical concern for occult fracture given adequate mechanism of injury, consider repeat imaging in 10-14 days. Immobilization as clinically indicated. Dictated by: Jeremiah Gonzalez M.D. on 07/29/2024 at 13:39 Approved by: Jeremiah Gonzalez M.D. on 07/29/2024 at 13:40
--- NOTE | 2024-07-29 12:29 | DI.RAD.S_ITS ---
PROCEDURE: XR ELBOW LT MIN 3V INDICATIONS: fall 2 days ago TECHNIQUE: 3 views of the elbow were acquired. COMPARISON: None. FINDINGS: Bones: No fractures or dislocations. No suspicious bony lesions. Soft tissues: No elbow joint effusion. No suspicious soft tissue calcifications. Minimal posterior elbow soft tissue swelling. IMPRESSION: No acute bony abnormality or significant joint effusion. Minimal posterior elbow soft tissue swelling over the olecranon process. If there is persistent clinical concern for occult fracture given adequate mechanism of injury, consider repeat imaging in 10-14 days. Immobilization as clinically indicated. Dictated by: Jeremiah Gonzalez M.D. on 07/29/2024 at 13:36 Approved by: Jeremiah Gonzalez M.D. on 07/29/2024 at 13:37
[2024-07-29 12:42] VITALS: BP 111/59; RESP 18
--- NOTE | 2024-07-29 14:10 | ED_ITS ---
HPI - Fall <Martin Sheldon PA-C - Last Filed: 07/29/24 14:21> General Chief Complaint: Fall Stated Complaint: pain lt side arm and foot, scrape on kneex 2days Time Seen by Provider: 07/29/24 12:55 Source: patient Mode of arrival: Ambulatory History of Present Illness HPI Narrative: 63-year-old male with past medical history hypertension, hyperlipidemia, morbid obesity presents to the ED status post a mechanical fall sustained 2 days prior to arrival. Patient states that he fell on the concrete 2 days ago, sustaining abrasions to his left elbow, left knee, left foot. No head strike, loss of consciousness. Complains of left elbow, knee, foot pain. No new numbness, tingling, weakness. Able to walk. Related Data Home Medications Medication Instructions Recorded Confirmed acetaminophen 500 mg tablet 1,000 mg PO BID 05/11/19 02/10/22 aspirin 81 mg tablet,delayed 81 mg PO DAILY 05/11/19 10/14/22 release (Aspir-) atorvastatin 10 mg tablet 10 mg PO DAILY 05/11/19 10/14/22 etodolac 200 mg capsule 200 mg PO BID 05/11/19 02/10/22 metformin 500 mg tablet 1,000 mg PO BID 05/11/19 10/14/22 metoprolol tartrate 25 mg tablet 25 mg PO BID 05/11/19 10/14/22 nitroglycerin 0.4 mg sublingual 0.4 mg sublingual Q5M 05/11/19 02/10/22 tablet Allergies Allergy/AdvReac Type Severity Reaction Status Date / Time acetaminophen [From Roxicet] AdvReac Verified 03/02/23 14:12 lisinopril AdvReac Verified 03/02/23 14:12 oxycodone [From Roxicet] AdvReac Verified 03/02/23 14:12 simvastatin AdvReac Verified 03/02/23 14:12 Review of Systems <Martin Sheldon PA-C - Last Filed: 07/29/24 14:21> Constitutional Constitutional: Denies chills, Denies fatigue, Denies fever(s), Denies frequent falls, Denies lethargy and Denies weakness Eyes Eyes: Denies change in vision, Denies eye discharge, Denies irritation and Denies loss of vision ENT Ears, Nose, Mouth, and Throat: Denies change in voice, Denies dizziness, Denies neck pain, Denies sore throat and Denies throat swelling Cardiovascular Cardiovascular: Denies chest pain, Denies irregular heart rhythm, Denies lightheadedness, Denies palpitations, Denies dyspnea, Denies dyspnea on exertion and Denies orthopnea Respiratory Respiratory: Denies cough, Denies dyspnea, Denies dyspnea on exertion and Denies wheezing Gastrointestinal Gastrointestinal: Denies abdominal pain, Denies change in bowel habits, Denies diarrhea, Denies nausea and Denies vomiting Musculoskeletal Musculoskeletal: Denies neck pain and Denies numbness Comments: Left elbow, left knee, left foot abrasions and pain Integumentary/Breasts Skin/Breast: Denies pruritus, Denies erythema, Denies rash and Denies wounds Neurologic Neurologic: Denies behavioral changes, Denies confusion, Denies dizziness, Denies frequent falls, Denies loss of vision, Denies numbness and Denies weakness Psychiatric Psychiatric: Denies anxiety, Denies behavioral changes, Denies confusion, Denies depression, Denies homicidal ideation and Denies suicidal ideation Endocrine Endocrine: Denies fatigue, Denies flushing and Denies palpitations Hematologic/Lymphatic Hematologic/Lymphatic: Denies easy bruising Allergic/Immunologic Allergic/Immunologic: Denies urticaria, Denies throat swelling and Denies wheezing Patient History <Martin Sheldon PA-C - Last Filed: 07/29/24 14:21> Medical History Hypertension Social History household members: spouse Smoking Status: Never smoker alcohol intake: former Smoking Status: Never smoker alcohol intake frequency: other Exam <Martin Sheldon PA-C - Last Filed: 07/29/24 14:21> Narrative Exam Narrative: Const General:?cooperative, healthy appearing and comfortable [facility] Head:?normal to inspection Ears:?hearing grossly normal bilaterally Nose:?external nose normal Face and sinus:?normal facial exam and sinuses nontender Mouth:?oral mucosae normal Throat:?posterior oropharynx normal Eyes General:?appearance normal, both eyes and all related structures Neck Neck:?normal visual inspection and no lymphadenopathy noted Resp Effort & Inspection:?normal respiratory effort Auscultation:?clear to auscultation bilaterally Cardio Rate:?regular rate Rhythm:?regular rhythm Musculoskeletal/integumentary There is some tenderness to palpation to the dorsal aspect of the right toes. Abrasions to the left elbow, left knee, left foot. No signs of bacterial infection. Able to bear weight and walk. Neurovascularly intact. Neuro General:?patient alert, patient awake and patient oriented x3 Initial Vital Signs Initial Vital Signs: Vital Signs Temperature 97.8 F 07/29/24 12:19 Pulse Rate 64 07/29/24 12:19 Respiratory Rate 18 07/29/24 12:19 Blood Pressure 104/59 L 07/29/24 12:19 Pulse Oximetry 97 07/29/24 12:19 Oxygen Delivery Method Room Air 07/29/24 12:19 <Evelin Daniel MD - Last Filed: 07/29/24 18:37> Initial Vital Signs Initial Vital Signs: Vital Signs Temperature 97.8 F 07/29/24 12:19 Pulse Rate 64 07/29/24 12:19 Respiratory Rate 18 07/29/24 12:19 Blood Pressure 104/59 L 07/29/24 12:19 Pulse Oximetry 97 07/29/24 12:19 Oxygen Delivery Method Room Air 07/29/24 12:19 Course <Martin Sheldon PA-C - Last Filed: 07/29/24 14:21> Orders Ordered: ED Orders 07/29/24 12:28 XR foot LT min 3V Stat XR knee LT 3V Stat 07/29/24 12:29 XR elbow LT min 3V Stat Vital Signs Vital signs: Vital Signs - 8 hr 07/29/24 12:19 07/29/24 12:42 Temperature 97.8 F Pulse Rate 64 Respiratory Rate 18 18 Blood Pressure 104/59 L 111/59 L Pulse Oximetry 97 Oxygen Delivery Method Room Air <Evelin Daniel MD - Last Filed: 07/29/24 18:37> Orders Ordered: ED Orders 07/29/24 12:28 XR foot LT min 3V Stat XR knee LT 3V Stat 07/29/24 12:29 XR elbow LT min 3V Stat Vital Signs Vital signs: Vital Signs - 8 hr 07/29/24 12:19 07/29/24 12:42 Temperature 97.8 F Pulse Rate 64 Respiratory Rate 18 18 Blood Pressure 104/59 L 111/59 L Pulse Oximetry 97 Oxygen Delivery Method Room Air MDM - Fall <Martin Sheldon PA-C - Last Filed: 07/29/24 14:21> [facility] Narrative Medical decision making narrative: 63-year-old male with past medical history hypertension, hyperlipidemia, morbid obesity presents to the ED status post a mechanical fall sustained 2 days prior to arrival. X-rays were obtained of the left elbow, left knee, left foot. X- rays negative for fracture/dislocation. Patient's symptoms are most consistent with a musculoskeletal sprain/strain. Patient requested a boot, boot was applied. Patient's tetanus is unknown. Counseled patient on need for tetanus update, however patient declined stating that he would prefer to get it at the [facility]. counseled patient on risks and consequences of not having an updated tetanus. Recommend follow-up with PCP as soon as possible. ED return precautions were discussed with patient. Patient verbalized understanding. Medical records reviewed: Yes Discharge Plan Departure Patient Disposition: Home Clinical Impression: Musculoskeletal strain, Abrasion Instructions: How to Prevent Falls Activity Restrictions/Additional Instructions: You were evaluated in the ED today for some injuries from a mechanical fall. Your x-rays did not show any fractures or dislocations. It appears that you have some abrasions from the fall and a musculoskeletal sprain/strain of the foot. You have been given a boot for comfort. You were offered a tetanus update today, however you declined since you prefer to get it from the [facility]. It is important that you have a up-to-date tetanus to prevent serious complications from infections, including . Please follow-up with your PCP as soon as possible. Return to the ED if you have worsening symptoms. Prescriptions: No Action metformin 500 mg Tablet 1,000 mg PO BID atorvastatin 10 mg Tablet 10 mg PO DAILY Rx Instructions: unknown dose metoprolol tartrate 25 mg Tablet 25 mg PO BID Rx Instructions: unknown dose aspirin [Aspir-81] 81 mg Tablet,Delayed Release (Dr/Ec) 81 mg PO DAILY nitroglycerin 0.4 mg Tablet, Sublingual 0.4 mg SUBLINGUAL Q5M etodolac 200 mg Capsule 200 mg PO BID acetaminophen 500 mg Tablet 1,000 mg PO BID Referrals: Jyoti Dickey ARNP [Primary Care Provider] - Stand Alone Forms: Patient Portal/API/Survey ED Sign-out <Evelin Daniel MD - Last Filed: 07/29/24 18:37> Cosign ED Attending Cosignature Attestation: I was immediately available in the department for consultation throughout this patient's visit. Evelin Daniel MD
== END 2024-07-29 14:47 | disposition home or self-care (01) ==
PROVIDERS: Emergency Provider Student in an Organized Health Care Education/Training Program; PCP Nurse Practitioner Acute Care
DX: S96.912A Strain of unspecified muscle and tendon at ankle and foot level, left foot, initial encounter (principal); S50.312A Abrasion of left elbow, initial encounter; S80.212A Abrasion, left knee, initial encounter; S90.812A Abrasion, left foot, initial encounter; W01.0XXA Fall on same level from slipping, tripping and stumbling without subsequent striking against object, initial encounter
CPT/HCPCS: 73080; 73562; 73630; 99283